=== PATIENT | female | born 1990 | race Caucasian/White ===

== ENCOUNTER 2023-01-17 11:30 | Outpatient (CLI) | payer MEDICAID ==
[2023-01-18 09:06] LABS: BILIRUBIN,URINE NEGATIVE (NEGATIVE); GLUCOSE, URINE (UA) NEGATIVE (NEGATIVE); KETONES,URINE (UA) NEGATIVE (NEGATIVE); LEUKOCYTE ESTERASE, URINE SMALL (NEGATIVE); NITRITE,URINE NEGATIVE (NEGATIVE); OCCULT BLOOD,URINE TRACE-INTA (NEGATIVE); PROTEIN,URINE NEGATIVE (NEGATIVE); UROBILINOGEN,URINE 1 (NORMAL) E.U./dL (NORMAL)
[2023-01-18 09:13] LABS: CLARITY,URINE CLOUDY (CLEAR)
[2023-01-18 09:20] LABS: AMORPHOUS SEDIMENT,UR Moderate /LPF; BACTERIA,URINE Few /HPF (None Seen); RBC,URINE None Seen /HPF (0-5); SQUAMOUS EPITHELIAL CELL,UR FEW Squamous (<= Few); WBC,URINE 0-3 /HPF (0-5)
[2023-01-18 09:21] LABS: CRYSTALS,URINE 3-5 Calcium Oxalate /LPF
== END 2023-01-17 11:31 | disposition home or self-care (01) ==
LOC: LAB.WC 11:30
PROVIDERS: ATTEND Nurse Practitioner
DX: Z34.90 Encounter for supervision of normal pregnancy, unspecified, unspecified trimester (principal)
CPT/HCPCS: 81001; 87077; 87086

== ENCOUNTER 2023-01-28 08:00 | Outpatient (CLI) | payer MEDICAID ==
[2023-01-28 20:20] LABS: CHLAMYDIA TRACHOMATIS DNA NEGATIVE (NEGATIVE); NEISSERIA GONORRHOEAE DNA NEGATIVE (NEGATIVE); TRICHOMONAS VAGINALIS DNA NEGATIVE (NEGATIVE)
== END 2023-01-28 23:59 | disposition home or self-care (01) ==
LOC: LAB.WC 08:00
PROVIDERS: ATTEND Obstetrics & Gynecology
DX: Z34.90 Encounter for supervision of normal pregnancy, unspecified, unspecified trimester (principal)
CPT/HCPCS: 87491; 87591; 87661

== ENCOUNTER 2023-02-18 13:32 | Outpatient (CLI) | payer MEDICAID ==
[2023-02-18 18:02] LABS: BASOPHILS % (AUTO) 0.3 %; EOSINOPHILS # (AUTO) 0.1 10^3/uL (0.0-0.7); EOSINOPHILS % (AUTO) 0.6 %; HCT - HEMATOCRIT 32.2 % (37.0-47.0); HGB - HEMOGLOBIN 10.9 g/dL (12.0-16.0); LYMPHOCYTES # (AUTO) 2.2 10^3/uL (1.5-3.5); LYMPHOCYTES % (AUTO) 18.4 %; MEAN CORPUSCULAR HEMOGLOBIN 29.9 pg (27.0-31.0); MEAN CORPUSCULAR HGB CONC 33.9 g/dL (32.0-36.0); MEAN CORPUSCULAR VOLUME 88.5 fL (81.0-99.0); MEAN PLATELET VOLUME 9.7 fL (7.9-10.8); MONOCYTES # (AUTO) 1.1 10^3/uL (0.0-1.0); MONOCYTES % (AUTO) 9.2 %; NEUTROPHILS # (AUTO) 8.4 10^3/uL (1.5-6.6); NEUTROPHILS % (AUTO) 70.9 %; PLT - PLATELET COUNT 283 10^3/uL (130-450); RED BLOOD COUNT 3.64 10^6/uL (4.20-5.40); RED CELL DISTRIBUTION WIDTH 12.8 % (12.0-15.0); WHITE BLOOD COUNT 11.8 x10^3/uL (4.8-10.8)
[2023-02-19 05:12] LABS: HBsAG SCREEN Negative (Negative); HCV AB Non Reactive (Non Reactive); HIV SCREEN 4TH GENERATION Non Reactive (Non Reactive)
[2023-02-19 08:10] LABS: RPR Non Reactive (Non Reactive)
[2023-02-19 09:09] LABS: VARICELLA-ZOSTER AB IGG 628 index (Immune >165)
[2023-02-20 20:07] LABS: AFP MOM 1.01 (.); AFP VALUE 39.2 ng/mL (.); GEST. AGE ON COLLECTION DATE 15.7 weeks (.); GESTAT. AGE METHOD EDD (.); INSULIN DEP DIABETES No (.); MATERNAL AGE AT EDD 31.7 yr (.); MULTIPLE GESTATION No (.); OPEN SPINA BIFIDA RISK 1 IN 10000 (.); RACE Caucasian (.); RESULTS Report (.); TEST RESULTS *Screen Negative* (.); WEIGHT 116 lbs (.)
== END 2023-02-18 13:33 | disposition home or self-care (01) ==
LOC: LAB.N 13:32
PROVIDERS: ATTEND Obstetrics & Gynecology
DX: O09.811 Supervision of pregnancy resulting from assisted reproductive technology, first trimester (principal)
CPT/HCPCS: 36415; 82105; 85025; 86592; 86762; 86787; 86803; 86850; 86900; 86901; 87340; 87389

== ENCOUNTER 2023-03-21 08:42 | Outpatient (CLI) | payer MEDICAID ==
--- NOTE | 2023-03-21 13:26 | Ultrasound Report ---
PROCEDURE: OB Anatomy Scan INDICATIONS: SUPERVISION OF OUTSIDE/PRIOR DATING DATA: Last menstrual period (LMP): 11/02/2022. In vitro fertilization transfer First dating scan (date and location): 03/21/2023. Estimated date of delivery (JANES) from first dating scan: 08/07/2023. TECHNIQUE: Real-time scanning was performed of the fetus, with image documentation and biometric measurements. Endovaginal scanning: Not performed. COMPARISON: None. FINDINGS: General: A single living intrauterine gestation is present. Presentation: Vertex Placenta: Placental position is anterior fundal, without previa. Amniotic fluid index: 13.1 cm, within normal limits for gestational age. Largest vertical pocket me asured 3.8 cm. heart rate: 150 beats per minute. Maternal cervical canal: 4.8 cm long; normal length is 2.5 cm or more. biometrics: Biparietal diameter: 4.5 cm, 19 weeks and 6 days (38th percentile) Head circumference: 16.9 cm, 19 weeks and 4 days (19th percentile) Abdominal circumference: 14.6 cm, 19 weeks and 6 days (36th percentile) Femur length: 3.2 cm, 20 weeks and 1 day (43rd percentile) Estimated gestational age from initial scan: 20 weeks and 1 day Composite gestational age from present scan: 19 weeks and 5 days Estimated weight and percentile: 325 g which correlates with the 36.5 percentile Measurement variability in biometric dating: +/- 10 days from 12-20 weeks gestation, +/- 2 weeks from 20-30 weeks gestation, +/- 3 weeks at 30 weeks gestation or later. Anatomic survey: Neuro: Ventricles are normal at less than 10 mm. Cisterna magna is normal at 3-11 mm. Cerebellum i s normal in size and morphology. Nuchal skin fold: Normal at less than 6 mm between 14 and 20 weeks gestational age. Face: Nose and lips are normal. facial profile was not visualized. Spine: No evidence for spina bifida. Heart: 4-chambered heart is present, with normal ventricular outflow tracts. Diaphragm: Diaphragm is intact. Stomach: Left-sided stomach is present. Kidneys: No hydronephrosis. Normal is less than 5 mm in 2nd trimester, less than 7 mm in 3rd trimester. Cord: 3 vessel cord has orthotopic insertion. Bladder: Normal in size. Extremities: All 4 extremities are visualized. IMPRESSION: Single living intrauterine gestation with estimated sonographic gestational age of approximately 19 w eeks and 5 days. Expected interval growth has occurred. Estimated weight of approximately 325 g which correlates with the 36.5 percentile. The facial profile is not well visualized. Remainder of the imaged anatomy structures dariel ear within normal limits. Follow-up recommended. Reviewed by: Rell Poole MD on 03/21/2023 1:24 PM PST Approved by: Rell Poole MD on 03/21/2023 1:24 PM PST Station ID: [id number]
== END 2023-03-21 08:43 | disposition home or self-care (01) ==
LOC: DI 08:42
PROVIDERS: ATTEND Obstetrics & Gynecology
DX: O09.812 Supervision of pregnancy resulting from assisted reproductive technology, second trimester (principal); Z3A.19 19 weeks gestation of pregnancy

== ENCOUNTER 2023-04-01 14:51 | Outpatient (CLI) | payer MEDICAID ==
--- NOTE | 2023-04-01 15:51 | Ultrasound Report ---
PROCEDURE: OB Follow up INDICATIONS: SUPERVISION OF OUTSIDE/PRIOR DATING DATA: First dating scan (date and location): 03/21/2023. Estimated date of delivery (JANES) from first dating scan: 08/07/2023. The below data below was generated using the ultrasound JANES of 08/07/2023 TECHNIQUE: Real-time scanning was performed of the fetus, with image documentation and biometric measurements. Endovaginal scanning: Not performed. COMPARISON: Ultrasound 03/21/2023 FINDINGS: General: A single living intrauterine gestation is present. Presentation: Vertex Placenta: Placental position is anterior, without previa. Amniotic fluid index: 18 cm, within normal limits for gestational age. heart rate: 153 beats per minute. Maternal cervical canal: 4.4 cm long; normal length is 2.5 cm or more. Estimated gestational age from initial scan: 21 weeks, 5 days Other: Facial profile is within normal limits. Bilateral renal pelviectasis measuring 6 mm. IMPRESSION: 1.Single image and patency consistent with 21 weeks and 5 days. 2.Facial profile is within normal limits. 3.Bilateral renal pelviectasis measuring 6 mm. Recommend short-term follow-up ultrasound. Reviewed by: Celestine Matias MD on 04/01/2023 3:50 PM PST Approved by: Celestine Matias MD on 04/01/2023 3:50 PM PST Station ID: [id number]
== END 2023-04-01 14:52 | disposition home or self-care (01) ==
LOC: DI 14:51
PROVIDERS: ATTEND Obstetrics & Gynecology
DX: O09.812 Supervision of pregnancy resulting from assisted reproductive technology, second trimester (principal); Z3A.21 21 weeks gestation of pregnancy

== ENCOUNTER 2023-05-13 10:59 | Outpatient (CLI) | payer MEDICAID ==
[2023-05-13 17:41] LABS: HCT - HEMATOCRIT 35.3 % (37.0-47.0); HGB - HEMOGLOBIN 11.5 g/dL (12.0-16.0); MEAN CORPUSCULAR HEMOGLOBIN 29.8 pg (27.0-31.0); MEAN CORPUSCULAR HGB CONC 32.6 g/dL (32.0-36.0); MEAN CORPUSCULAR VOLUME 91.5 fL (81.0-99.0); MEAN PLATELET VOLUME 9.5 fL (7.9-10.8); RED BLOOD COUNT 3.86 10^6/uL (4.20-5.40); RED CELL DISTRIBUTION WIDTH 12.7 % (12.0-15.0); WHITE BLOOD COUNT 11.5 x10^3/uL (4.8-10.8)
== END 2023-05-13 11:00 | disposition home or self-care (01) ==
LOC: LAB.N 10:59
PROVIDERS: ATTEND Obstetrics & Gynecology
DX: O09.812 Supervision of pregnancy resulting from assisted reproductive technology, second trimester (principal); Z36.89 Encounter for other specified antenatal screening
CPT/HCPCS: 36415; 82950; 85027

== ENCOUNTER 2023-06-27 11:34 | Outpatient (CLI) | payer MEDICAID ==
--- NOTE | 2023-06-27 19:50 | Ultrasound Report ---
PROCEDURE: OB Follow up INDICATIONS: UTERINE SIZE DATE DISCREPENCY OUTSIDE/PRIOR DATING DATA: IVF transfer: 11/02/2022 IVF-based estimated date of delivery (JANES): 08/07/2023. First dating scan (date and location): 03/21/2023. Estimated date of delivery (JANES) from first dating scan: 08/07/2023. The below data below was generated using the clinical JANES of 08/07/2023 TECHNIQUE: Real-time scanning was performed of the fetus, with image documentation and biometric measurements. Endovaginal scanning: Not performed. COMPARISON: 04/01/2023 FINDINGS: General: A single living intrauterine gestation is present. Presentation: Vertex Placenta: Placental position is anterior, without previa. Amniotic fluid index: 11.5 cm, 24 percentile for gestational age. heart rate: 147 beats per minute. Maternal cervical canal: 4.4 cm long; normal length is 2.5 cm or more. biometrics: Biparietal diameter: 8.1 cm, 32 weeks 4 days, 10 percentile Head circumference: 30 cm, 33 weeks 2 days, 5 percentile Abdominal circumference: 30.5 cm, 34 weeks 3 days, 64 percentile Femur length: 6.6 cm, 33 weeks 6 days, 34 percentile Estimated gestational age from initial scan: 34 weeks 1 day Composite gestational age from present scan: 33 weeks 4 days Estimated weight and percentile: 2324 g, 39 percentile Measurement variability in biometric dating: +/- 10 days from 12-20 weeks gestation, +/- 2 weeks from 20-30 weeks gestation, +/- 3 weeks at 30 weeks gestation or more. Other: Bilateral pelvocaliectasis, measuring 0.5 cm on the right and 0.6 cm on the left. This was pre viously 0.5 cm on the right and left. IMPRESSION: Single living intrauterine at 34 weeks 1 day, JANES of 08/07/2023. Estimated weight of 2324 g, 39th percentile. Bilateral pelvocaliectasis, measuring 0.5 cm on the right and 0.6 cm on the left. This was previously 0.5 cm on the right and left. Reviewed by: Manuel Lyons MD on 06/27/2023 7:48 PM PDT Approved by: Manuel Lyons MD on 06/27/2023 7:48 PM PDT Station ID: [id number]
== END 2023-06-27 11:35 | disposition home or self-care (01) ==
LOC: DI 11:34
PROVIDERS: ATTEND Nurse Practitioner
DX: O26.843 Uterine size-date discrepancy, third trimester (principal); O35.EXX0 Maternal care for other (suspected) fetal abnormality and damage, fetal genitourinary anomalies, not applicable or unspecified; Z3A.34 34 weeks gestation of pregnancy

== ENCOUNTER 2023-07-11 13:34 | Outpatient (CLI) | payer MEDICAID ==
[2023-07-11 14:00] VITALS: BP 109/58
--- NOTE | 2023-07-11 17:12 | PROCEDURE REPORT ---
- HPI Diagnosis/Indication for NST: Other (ivf ) Current EDU 08/07/23 Gestation 36 Weeks and 1 Days 1 Para 0 Vital Signs Temperature 98.4 F 07/11/23 13:48 Heart Rate 117 H 07/11/23 13:48 Respiratory Rate 20 07/11/23 13:48 Blood Pressure 109/58 L 07/11/23 13:48 Temperature 98.4 F 07/11/23 13:48 Heart Rate 95 07/11/23 14:24 Respiratory Rate 20 07/11/23 13:48 Blood Pressure 109/58 L 07/11/23 13:48 O2 Saturation If not protocol: Oxygen Flow, liters/minute - NST Procedure NST Procedure Start Date 07/11/23 Start Time 13:42 Stop Time 14:07 Vibroacoustic Stimulation Used No Patient States Movement Yes - Results and Plan Findings/Impression: Reactive for of 32 weeks gestation or more. NST tracing contains at least two heart rate accelerations that are at least 15 beats per minute above the baseline rate and lasting at least 15 seconds from onset to return to baseline within a twenty minute period. Plan: as scheduled
== END 2023-07-11 14:09 | disposition home or self-care (01) ==
LOC: WFO 13:34 → FBP 13:38 → WFO 14:09
PROVIDERS: ATTEND Obstetrics & Gynecology
DX: O09.813 Supervision of pregnancy resulting from assisted reproductive technology, third trimester (principal); Z3A.36 36 weeks gestation of pregnancy
CPT/HCPCS: 59025

== ENCOUNTER 2023-07-15 08:00 | Outpatient (CLI) | payer MEDICAID | END 2023-07-15 23:59 | disposition home or self-care (01) | LOC: LAB.WC 08:00 | PROVIDERS: ATTEND Obstetrics & Gynecology | DX: Z36.85 Encounter for antenatal screening for Streptococcus B (principal) | CPT/HCPCS: 87797 ==

== ENCOUNTER 2023-07-18 13:37 | Outpatient (CLI) | payer MEDICAID ==
[2023-07-18 13:56] VITALS: BP 98/58
--- NOTE | 2023-07-19 08:49 | PROCEDURE REPORT ---
- HPI Diagnosis/Indication for NST: Other (ivf ) Current EDU 08/07/23 Gestation 37 Weeks and 1 Days 1 Para 0 Vital Signs Temperature 97.7 F 07/18/23 13:50 Heart Rate 105 H 07/18/23 13:50 Respiratory Rate 17 07/18/23 13:50 Blood Pressure 98/58 L 07/18/23 13:50 Temperature 97.7 F 07/18/23 13:50 Heart Rate 105 H 07/18/23 13:50 Respiratory Rate 17 07/18/23 13:50 Blood Pressure 98/58 L 07/18/23 13:50 O2 Saturation If not protocol: Oxygen Flow, liters/minute - NST Procedure NST Procedure Start Date 07/18/23 Start Time 13:46 Stop Time 14:10 Vibroacoustic Stimulation Used No Patient States Movement Yes - Results and Plan Findings/Impression: Reactive for of 32 weeks gestation or more. NST tracing contains at least two heart rate accelerations that are at least 15 beats per minute above the baseline rate and lasting at least 15 seconds from onset to return to baseline within a twenty minute period. Plan: care as scheduled. will refill pepcid as requested. done in [place]
== END 2023-07-18 14:20 | disposition home or self-care (01) ==
LOC: WFO 13:37 → FBP 13:41 → WFO 14:20
PROVIDERS: ATTEND Obstetrics & Gynecology
DX: O09.813 Supervision of pregnancy resulting from assisted reproductive technology, third trimester (principal); Z3A.37 37 weeks gestation of pregnancy
CPT/HCPCS: 59025

== ENCOUNTER 2023-07-25 10:38 | Outpatient (CLI) | payer MEDICAID ==
[2023-07-25 10:55] VITALS: BP 96/60
--- NOTE | 2023-07-25 12:27 | PROCEDURE REPORT ---
- HPI Diagnosis/Indication for NST: Other (IVF ) Current EDU 08/07/23 Gestation 38 Weeks and 1 Days 1 Para 0 Vital Signs Temperature 98.1 F 07/25/23 10:49 Heart Rate 97 07/25/23 10:49 Respiratory Rate 16 07/25/23 10:49 Blood Pressure 96/60 07/25/23 10:49 Temperature 98.1 F 07/25/23 10:49 Heart Rate 97 07/25/23 10:49 Respiratory Rate 16 07/25/23 10:49 Blood Pressure 96/60 07/25/23 10:49 O2 Saturation If not protocol: Oxygen Flow, liters/minute - NST Procedure NST Procedure Start Date 07/25/23 Start Time 10:45 Stop Time 11:23 Vibroacoustic Stimulation Used No - Results and Plan Plan: Patient is a 32-year-old G1, P0 at 38 weeks 1 day gestation here for NST. NST Performed 07/25/2023 NST Read 07/25/2023 FHT: 130 bpm baseline, moderate variability, accelerations present, no decelerations. Reactive NST Macy: Quiescent Diagnosis 38 weeks gestation IVF Continue with scheduled OB care
== END 2023-07-25 11:30 | disposition home or self-care (01) ==
LOC: WFO 10:38 → FBP 10:39 → WFO 11:30
PROVIDERS: ATTEND Obstetrics & Gynecology
DX: O09.813 Supervision of pregnancy resulting from assisted reproductive technology, third trimester (principal); Z3A.38 38 weeks gestation of pregnancy
CPT/HCPCS: 59025

== ENCOUNTER 2023-07-30 06:01 | Inpatient (IN) | payer MEDICAID ==
[2023-07-30 07:49] LABS: RUPTURE OF MEMBRANES PLUS POSITIVE (NEGATIVE)
--- NOTE | 2023-07-30 08:16 | HISTORY & PHYSICAL EXAMINATION ---
Admit History - Visit Reason Visit Reason: Membranes rupture - : 1 Parity: 0 Complications This : positive: Other (IVF ) Smoking Status: Never smoker - Mother's Labs Mother's Blood Type: positive: O Mother's RH: positive: Positive GBS: positive: Group B Step Negative Rubella Status: positive: Immune - Other Maternal History Other Maternal History: HPI: 32-year-old G1, P0 presented today with rupture of membranes she woke up this morning. She has some contractions that started yesterday. 25 minutes.. She has good movement. . No WIN/BV or RUQP. No vaginal bleeding. Denies nausea and vomiting. Denies urinary urgency or dysuria. All other symptoms reviewed and were negative except per HPI. Course LMP: 11/02/22 JANES by LMP: US:12/28/22 c/w dates Final JANES: 08/07/2023 - by IVF transfer FOB: Jono Cobb IVF . Male factor? Failed IUI twice then IVF. Normal gentic screening. Sex known. Start ASA 12 weeks. Encouraged to think about spacing and consider condoms as not an absolute cause of infertility. NST/BPP scheduled. GERD: Famotidine for prevention. Taking nightly currently. Pre- Weight:112.4 BMI: 19.98 Blood type: O+ Rh: positive Antibody:negative CBC: H/H 10.9/32.2 plt 283 RUB:Immune VZV:Immune HBsAg: Negative HepC: NR RPR/AB-EIA:NR HIV:NR PAP:10/30/2021 Normal per pt. Will get records. GC/CT: Negative HSV:denies self and partner Genetic testing: normal Covid:declines Flu:declines FAS: WNL Placenta:anterior w/o previa Cord: 3VC KETAN:13.1, normal EFW: 325gl 36.5%ile 50gm OGCT: 120 3HR GTT: n/a TDAP: 06/02 Breast Pump: 05/19 3rd trimester H/H-35.3/11.5 PLT-254 GBS: Negative Delivery plan: No epidural, Encouraged to discuss 39 to 40-week induction. Contraception: IVF , Consider condoms as he does have mobile sperm and she has no reason for infertility. PMH Anxiety PSH Egg retrieval OB History G1, P0 SH Denies tobacco, alcohol, drugs Family History Mother: DVT, migraines Father: High cholesterol, lung cancer Maternal grandmother: Diabetes Allergies Latex Medications Aspirin 81 mg daily Famotidine 20 mg twice daily as needed vitamins daily Physical exam: General: Alert, oriented, no acute distress Head: Normal cephalic atraumatic Eyes: PERRLA, extraocular motions intact. Respiratory: Normal rate of respiration. No accessory muscle use, normal respiratory effort. Cardiovascular: Regular rate and rhythm Abdomen: Gravid, nontender, nondistended Extremities: Normal range of motion Neuro: Oriented x3. Normal movements Psych: Appropriate mood and affect. Normal judgment and insight SVE: 0/0/-3 FHT: 145 beats minute baseline, moderate variability, accelerations present, no decelerations. [place]: 2 to 5 minutes Labs: ROM plus positive Plan 1. Term labor/SROM Admit to L&D, active labs, epidural at patient's request. 2. 38 weeks gestation 3. IVF 4. GERD: -Continue famotidine as needed - HPI Vital Signs Temperature 97.8 F 07/30/23 06:11 Heart Rate 109 H 07/30/23 06:11 Respiratory Rate 16 07/30/23 06:11 Blood Pressure 100/58 L 07/30/23 06:11 Temperature 97.8 F 07/30/23 06:11 Heart Rate 109 H 07/30/23 06:11 Respiratory Rate 16 07/30/23 06:11 Blood Pressure 100/58 L 07/30/23 06:11 O2 Saturation If not protocol: Oxygen Flow, liters/minute - NST Procedure NST Procedure Start Time 10:45 Stop Time 11:23 Meds/Allgy - Home Medications Home Medications: Ambulatory Orders Medication Instructions Recorded Confirmed Aspirin [Vazalore] 81 mg PO DAILY 07/18/23 07/18/23 Famotidine [Acid Furnace Keeper] 20 mg PO DAILY 07/18/23 07/18/23 Famotidine [Pepcid] 20 mg PO BID PRN #90 tablet 07/18/23 Pnv No.95/Ferrous Fum/Folic AC 1 tab PO DAILY 07/18/23 07/18/23 [ Caplet] Physical - Abdominal Exam Vital Signs: Temp Pulse Resp BP Pulse Ox O2 Flow Rate 97.8 F 109 H 16 100/58 L 07/30/23 06:11 07/30/23 06:11 07/30/23 06:11 07/30/23 06:11 Plan for Labor - Plan For Labor I expect patient to be DC'd or transferred within 96 hours.: Yes
[2023-07-30] MEDS ORDERED: FAMOTIDINE 20 MG TABLET PO PRN (08:31)
[2023-07-30] MEDS ORDERED: METHYLERGONOVINE 0.2 MG/ML VIAL IM PRN (08:34)
[2023-07-30] MEDS ORDERED: ONDANSETRON ODT 4 MG TABLET TL PRN (08:34)
[2023-07-30] MEDS ORDERED: miSOPROStoL 200 MCG TABLET PR PRN (08:34)
[2023-07-30] MEDS ORDERED: NIFEdipine 10 MG CAPSULE PO PRN (08:34)
[2023-07-30] MEDS ORDERED: miSOPROStoL 200 MCG TABLET BC PRN (08:34)
[2023-07-30] MEDS ORDERED: SODIUM CHLORIDE FLUSH 0.9% 10 ML SYRINGE IVP PRN (08:34)
[2023-07-30] MEDS ORDERED: TRANEXAMIC ACID IN NACL 1,000 MG/100 ML BAG IV PRN (08:34)
[2023-07-30] MEDS ORDERED: hydrALAZINE INJ 20 MG/ML VIAL IVP PRN ×2 (08:34)
[2023-07-30] MEDS ORDERED: OXYTOCIN 10 UNIT/ML VIAL IM PRN (08:34)
[2023-07-30] MEDS ORDERED: LABETALOL 20 MG/4 ML SYRINGE IVP PRN ×3 (08:34)
[2023-07-30] MEDS ORDERED: TERBUTALINE 1 MG/ML VIAL SUBQ PRN (08:34)
[2023-07-30] MEDS ORDERED: ACETAMINOPHEN 500 MG TABLET PO PRN (08:34)
[2023-07-30] MEDS ORDERED: fentaNYL 100 MCG/2 ML VIAL IVP PRN (08:34)
[2023-07-30] MEDS ORDERED: OXYTOCIN/SODIUM CHLORIDE 500 ML IV SCH (09:00)
[2023-07-30] MEDS ORDERED: LACTATED RINGERS 1,000 ML IV SCH (09:00)
[2023-07-30] MEDS ORDERED: SODIUM CHLORIDE FLUSH 0.9% 10 ML SYRINGE IVP SCH (09:00)
[2023-07-30] MEDS: miSOPROStoL 100 MCG TABLET BC SCH (09:37)
[2023-07-30 10:30] LABS: BASOPHILS # (AUTO) 0.1 10^3/uL (0.0-0.1); BASOPHILS % (AUTO) 0.4 %; EOSINOPHILS # (AUTO) 0.1 10^3/uL (0.0-0.7); EOSINOPHILS % (AUTO) 0.4 %; HCT - HEMATOCRIT 41.9 % (37.0-47.0); HGB - HEMOGLOBIN 13.7 g/dL (12.0-16.0); LYMPHOCYTES # (AUTO) 2.2 10^3/uL (1.5-3.5); LYMPHOCYTES % (AUTO) 13.1 %; MEAN CORPUSCULAR HEMOGLOBIN 29.1 pg (27.0-31.0); MEAN CORPUSCULAR HGB CONC 32.7 g/dL (32.0-36.0); MEAN PLATELET VOLUME 10.3 fL (7.9-10.8); MONOCYTES # (AUTO) 1.2 10^3/uL (0.0-1.0); MONOCYTES % (AUTO) 7.3 %; NEUTROPHILS # (AUTO) 13.1 10^3/uL (1.5-6.6); NEUTROPHILS % (AUTO) 76.9 %; PLT - PLATELET COUNT 264 10^3/uL (130-450); RED BLOOD COUNT 4.71 10^6/uL (4.20-5.40); RED CELL DISTRIBUTION WIDTH 13.1 % (12.0-15.0)
--- NOTE | 2023-07-30 12:01 | PHARMACY PROGRESS NOTE ---
- Best Possible Medication History Admit Date and Time: 07/30/23 0834 Processed by: Pharmacy Medications reviewed in ED?: No Medication History completed: No Patient Interview: Pt unable to participate Secondary Source(s): Physician records, Insurance records As the person ultimately responsible for medication therapy, providers are able to order a medication from an existing home medication list in [facility] via the "Reconcile Routine" prior to Confirmation of that medication by retail support specialist. Such practice is discouraged except when the physician, in their clinical judgment, deems that a medical need exists for a medication without regard to previous use.
--- NOTE | 2023-07-30 21:02 | ANESTHESIA ---
Pre-Anesthesia VS, & Labs - Diagnosis Induction of labor - Procedure vaginal delivery Vital Signs: Temp Pulse Resp BP Pulse Ox O2 Flow Rate 37.0 C 109 H 16 100/58 L 07/30/23 08:15 07/30/23 06:11 07/30/23 06:11 07/30/23 06:11 Height: 5 ft 3 in Weight (kg): 69.4 kg Body Mass Index: 27.1 BMI Classification: Overweight - NPO Other (clear liquids during labor) - Is Patient ?: Yes - Lab Results Current Lab Results: Laboratory Tests 07/30/23 08:45: WBC 17.0 H, RBC 4.71, Hgb 13.7, Hct 41.9, MCV 89.0, MCH 29.1, MCHC 32.7, RDW 13.1, Plt Count 264, MPV 10.3, Neut # (Auto) 13.1 H, Lymph # (Auto) 2.2, Peach # (Auto) 1.2 H, Eos # (Auto) 0.1, Baso # (Auto) 0.1, Absolute Nucleated RBC 0.00, Nucleated RBC % 0.0 07/30/23 08:45: Blood Type O POSITIVE, Antibody Screen NEGATIVE Lab results reviewed: Yes Fish Bones: 07/30/23 08:45 Home Medications and Allergies Active Medications Acetaminophen (Acetaminophen 500 Mg Tablet) 1,000 mg PO Q6HR PRN PRN Reason: Pain or Fever > 38C (100.4F) Famotidine (Famotidine 20 Mg Tablet) 20 mg PO BID PRN PRN Reason: Heartburn Fentanyl (Fentanyl 100 Mcg/2 Ml Vial) 50 mcg IVP Q1H PRN PRN Reason: Severe Pain (score 7-10) Hydralazine HCl (Hydralazine Inj 20 Mg/Ml Vial) 10 mg IVP .ONCE PRN; Protocol PRN Reason: SBP> or= 160 OR DBP> or= 110 Hydralazine HCl (Hydralazine Inj 20 Mg/Ml Vial) 5 - 10 mg IVP Q20M PRN; Protocol PRN Reason: SBP> or= 160 OR DBP> or= 110 Oxytocin/Sodium Chloride (Pitocin/Sodium Chloride) 500 mls @ 999 mls/hr IV PRN PRN; Protocol PRN Reason: POST- HEMORR PREVENTION Tranexamic Acid (Tranexamic 1,000 Mg/100ml-Nacl) 1,000 mg in 100 mls @ 600 mls/hr IV Q30M PRN PRN Reason: EBL >1200mL and within 3hr Lactated Ringer's (Lr) 1,000 mls @ 125 mls/hr IV .Q8H TARUN Lactated Ringer's (Lr) 1,000 mls @ 999 mls/hr IV PRN PRN PRN Reason: PER PHYSICIAN ORDER Oxytocin/Sodium Chloride (Pitocin/Sodium Chloride) 500 mls @ 2 mls/hr IV TITR TARUN; Protocol Labetalol HCl (Labetalol 20 Mg/4 Ml Syringe) 20 mg IVP .ONCE PRN; Protocol PRN Reason: SBP> or= 160 OR DBP> or= 110 Labetalol HCl (Labetalol 20 Mg/4 Ml Syringe) 20 - 80 mg IVP Q10M PRN; Protocol PRN Reason: SBP> or= 160 OR DBP> or= 110 Labetalol HCl (Labetalol 20 Mg/4 Ml Syringe) 20 - 40 mg IVP Q10M PRN; Protocol PRN Reason: SBP> or= 160 OR DBP> or= 110 Lidocaine HCl (Lidocaine 1% 20 Ml Mdv) 20 ml ID .ONCE PRN PRN Reason: PERINEAL REPAIR Stop: 08/02/23 08:34 Methylergonovine Maleate (Methylergonovine 0.2 Mg/Ml Vial) 0.2 mg IM .ONCE PRN PRN Reason: Hemorrhage Misoprostol (Misoprostol 200 Mcg Tablet) 600 mcg BC .ONCE PRN PRN Reason: Hemorrhage Misoprostol (Misoprostol 200 Mcg Tablet) [address] .ONCE PRN PRN Reason: Hemorrhage Misoprostol (Misoprostol 100 Mcg Tablet) 25 mcg BC Q4H [facility] Last Admin: 07/30/23 13:45 Dose: 25 mcg Nifedipine (Nifedipine 10 Mg Capsule) 10 - 20 mg PO Q20M PRN; Protocol PRN Reason: SBP> or= 160 OR DBP> or= 110 Ondansetron HCl (Ondansetron Odt 4 Mg Tablet) 4 mg TL Q6HR PRN PRN Reason: Nausea / Vomiting Oxytocin (Oxytocin 10 Unit/Ml Vial) 10 unit IM .ONCE PRN PRN Reason: Step One if no IV access. Sodium Chloride (Sodium Chloride Flush 0.9% 10 Ml Syringe) 10 ml IVP Q8H TARUN Sodium Chloride (Sodium Chloride Flush 0.9% 10 Ml Syringe) 10 ml IVP PRN PRN PRN Reason: NEEDED PER PROVIDER ORDERS Terbutaline Sulfate (Terbutaline 1 Mg/Ml Vial) 0.25 mg SUBQ .ONCE PRN PRN Reason: Tachystole Aspirin [Vazalore] 81 mg PO DAILY 07/18/23 Famotidine [Acid Housing Case Manager] 20 mg PO HS 07/18/23 Pnv No.95/Ferrous Fum/Folic AC [ Caplet] 1 tab PO DAILY 07/18/23 Allergies/Adverse Reactions: Allergies Allergy/AdvReac Type Severity Reaction Status Date / Time latex Allergy Unknown Verified 07/30/23 21:01 Anes History & Medical History - Anesthetic History Anesthesia Complications: reports: No previous complications Family history of Anesthesia Complications: Denies Family history of Malignant Hyperthermia: Denies - Medical History Cardiovascular: reports: None Pulmonary: reports: None Gastrointestinal: reports: None Urinary: reports: None Neuro: reports: None Musculoskeletal: reports: Scoliosis (mild) Endocrine/Autoimmune: reports: None Blood Disorders: reports: None Skin: reports: None Smoking Status: Never smoker Psychosocial: reports: No issues indicated History of Cancer?: No - Surgical History Other Past Surgical History: Egg retrieval - Obstetrical History : 1 Parity: 0 Events: reports: None Complications: reports: Other (IVF ) Exam General: Alert, Oriented x3, Cooperative, No acute distress Dental: WNL Mouth Openin Fingerbreadth Neck Mobility: Normal Mallampati classification: II Thyromental Distance: 4-6 cm Mental/Cognitive Status: Alert/Oriented X3, Normal for patient Plan Anesthesia Type: Epidural (if requested) Consent for Procedure(s) Verified and Reviewed: Yes Code Status: Attempt Resuscitation ASA classification: 2-Mild systemic disease Is this case an emergency?: No
[2023-07-31] MEDS: LACTATED RINGERS 1,000 ML IV PRN (05:53)
[2023-07-31] MEDS: OXYTOCIN/SODIUM CHLORIDE 500 ML IV PRN (05:53)
[2023-07-31] MEDS: lidocaine 1% 20 ML MDV ID PRN (05:58)
[2023-07-31] MEDS ORDERED: SIMETHICONE CHEW 80 MG TABLET PO PRN (06:28)
[2023-07-31] MEDS ORDERED: CALCIUM CARBONATE CHEW 500 MG TABLET PO PRN (06:28)
[2023-07-31] MEDS ORDERED: ONDANSETRON 4 MG/2 ML VIAL IVP PRN (06:28)
--- NOTE | 2023-07-31 06:41 | DELIVERY NOTE ---
<Bernabe Strong - Last Filed: 07/31/23 07:00> Delivery Note - Delivery Comments (Free Text/Narrative) Delivery Comments (Free Text/Narrative): As above. I was present and participated in the delivery of a vigorous liveborn without significant complications for the training of student commercial loan closer, Teagan Willoughby. <Teagan Willoughby - Last Filed: 07/31/23 16:22> Delivery Note - Labor Labor: positive: Spontaneous - Infant Delivery Method Delivery Method: positive: Spontaneous vaginal delivery - Presentation Presentation: positive: JANE - left occiput anterior - Nuchal Cord Nuchal Cord: positive: None - Anesthetic Anesthetic: positive: Lidocaine - 1% plain - Amniotic Fluid Description Amniotic Fluid Description: positive: Clear - Laceration Laceration: positive: 2nd degree - Suture Suture Size: positive: 3-0 - Delivery Outcome Delivery Outcome: positive: Livebirth - [place] : positive: Placed in direct skin contact with mother, [place] used, [place] used [place] sex: positive: Male - Cord Cord: positive: 3 vessels - Placenta Placenta: positive: Intact - Estimated Blood Loss Estimated Blood Loss (in cc): 200 - Post Delivery Events Post Delivery Events: positive: No post delivery events - Delivery Comments (Free Text/Narrative) Delivery Comments (Free Text/Narrative): This-32 year-old, G 1 P 0 . @ 38+6 gestation on 0500 on 07/30/2023 with rupture of membranes. She presented to L&D with a Cervix was 0/50/-2 and Vertex. GBS negative. FHR pattern demonstrated 140s baseline in a category I. 2 doses of misoprostol given for cervical softening, Unmedicated normal labor progression followed. Complete/+1 @ 0504. : Normal spontaneous vaginal delivery of a viable male on 07/31/23 @ 0537. The was placed on maternal abdomen, stimulated, dried and placed skin to skin. Apgars 9 @1 min, and @5 minutes. Pitocin administered via IV for hemostasis. The umbilical cord was allowed to stop pulsating at which time it was doubly clamped by delivering provider and cut by FOB. 3VC. Cord blood was obtained. Fundal massage and gently cord traction applied for active management of the third stage, placenta delivered spontaneously and intact with placenta delivery intact at 0553. EBL 200. Fourth stage: Uterine fundus firm and there is no excessive bleeding. The perineum, vagina and cervix were inspected. 2nd degree perineal laceration with extension to right labial side wall. Lacerations were repaired under local anesthesia 1% lidocaine 20cc -0 vicryl rapide, repaired in standards fashion under sterile conditions). Vaginal and rectal examination following the repair was done. Tissues well approximated. Skin to skin initiated. Family bonding well. Both mother and baby are in stable condition.
[2023-07-31] MEDS ORDERED: LACTATED RINGERS 1,000 ML IV SCH (07:00)
[2023-07-31] MEDS: IBUPROFEN 600 MG TABLET PO SCH (08:00)
[2023-07-31] MEDS: ACETAMINOPHEN 500 MG TABLET PO SCH (08:00)
[2023-07-31 16:24] VITALS: O2SAT 96
[2023-07-31] MEDS: DOCUSATE SODIUM 100 MG CAPSULE PO PRN (21:08)
--- NOTE | 2023-08-01 09:31 | DISCHARGE SUMMARY ---
Discharge Summary - ALLERGIES Allergies/Adverse Reactions: Allergies Allergy/AdvReac Type Severity Reaction Status Date / Time latex Allergy Unknown Verified 07/30/23 21:01 - MEDICATIONS Home Medications: Ambulatory Orders Medication Instructions Recorded Confirmed Aspirin [Vazalore] 81 mg PO DAILY 07/18/23 07/30/23 Famotidine [Acid Pearl Glue Operator] 20 mg PO HS 07/18/23 07/30/23 Famotidine [Pepcid] 20 mg PO BID PRN #90 tablet 07/18/23 07/30/23 Pnv No.95/Ferrous Fum/Folic AC 1 tab PO DAILY 07/18/23 07/30/23 [ Caplet] - LABS Result Diagrams: 07/30/23 08:45
--- NOTE | 2023-08-01 09:35 | DISCHARGE SUMMARY ---
"Discharge Summary Admit Date: 07/30/23 Discharge Date: 08/01/23 Discharging Provider: Suzanne Quintana MD Code Status: Attempt Resuscitation Condition at Discharge: Good Discharge Disposition: 01 Home, Self Care - DIAGNOSES Admission Diagnoses: PROM IVF - CONSULTS | PROCEDURES Procedures: , repair of 2nd degree laceration - HOSPITAL COURSE Hospital Course: Annette is a 32 yo wh opresents with rupture of membranes. She received 2 doses of misoprostol. She had an uncomplicated , repair of 2nd degree vaginal laceration with an EBL of 200cc. course uncomplicated. - ALLERGIES Allergies/Adverse Reactions: Allergies Allergy/AdvReac Type Severity Reaction Status Date / Time latex Allergy Unknown Verified 07/30/23 21:01 - MEDICATIONS Home Medications: Ambulatory Orders Medication Instructions Recorded Confirmed Aspirin [Vazalore] 81 mg PO DAILY 07/18/23 07/30/23 Famotidine [Acid Traffic Expert] 20 mg PO HS 07/18/23 07/30/23 Famotidine [Pepcid] 20 mg PO BID PRN #90 tablet 07/18/23 07/30/23 Pnv No.95/Ferrous Fum/Folic AC 1 tab PO DAILY 07/18/23 07/30/23 [ Caplet] - PHYSICAL EXAM AT DISCHARGE General Appearance: positive: No acute distress Respiratory: positive: No respiratory distress Abdomen: positive: Non-tender, Other (Fundus firm. ) Extremities: positive: No pedal edema, Other (No evidence of DVT) - LABS Result Diagrams: 07/30/23 08:45 - FOLLOW UP Follow Up: 1 week"
[2023-08-01 10:32] VITALS: BP 97/57
--- NOTE | 2023-08-01 14:45 | Labor Flowsheet ---
Labor Flowsheet Datetime Report Generated by CPN: 08/01/2023 14:45 Datetime: 08/01/2023 06:39 VITAL SIGNS NBP Sys/Shannan/Mean (mmHg): 91 : 45 : 56 Pulse: 74 Datetime: 07/31/2023 07:31 Stage of : Datetime: 07/31/2023 07:30 Respirations: 18 Temperature (C): 36.5 Temperature Route: Oral Datetime: 07/31/2023 05:53 STAGE 2 Stage 2 Comments: placenta Datetime: 07/31/2023 05:05 Provider Notified (Name): Ate, Owen Communication Comments: REquest to come in Datetime: 07/31/2023 05:04 VAGINAL EXAM Dilatation (cm): 10.0 Station: 1 Exam by: K Pattie Datetime: 07/31/2023 05:00 COMMUNICATION Communication: Provider at Bedside Datetime: 07/31/2023 04:36 LaborFlag: Labor Datetime: 07/31/2023 04:27 Effacement (%): 80 Vaginal Bleeding: Normal Show Cervix, Position: Anterior Datetime: 07/31/2023 02:00 Category: Category I Datetime: 07/31/2023 01:27 Monitor Interventions for FHR: Ultrasound Adjusted Datetime: 07/31/2023 01:00 Monitor Interventions for UA: [place] Adjusted Datetime: 07/31/2023 00:49 Cervix, Consistency: Soft Datetime: 07/31/2023 00:48 Patient Position/Activity: Semi-Fowlers Patient Care Comments: PT back to bed. VE to follow Datetime: 07/30/2023 22:13 Comments: Pt still in tub Datetime: 07/30/2023 21:34 UTERINE ACTIVITY Monitor Mode: External Frequency (min): 2-4 Quality: Moderate Duration (sec): 50-80 Pattern: Normal: <= 5 Contractions in 10 Minutes Resting Tone (Palpate): Relaxed ASSESSMENT A Monitor Mode: External US FHR Baseline Rate : 135 Variability: Moderate 6-25 bpm Accelerations: 15X15 Decelerations: None Datetime: 07/30/2023 20:01 I/O Interventions: Up to BR Datetime: 07/30/2023 20:00 FHR Baseline Changes: No Baseline Change Datetime: 07/30/2023 18:31 Actions for Decelerations: IV Bolus PATIENT CARE IV/Blood Work: IV Started; IV Bolus Started; IV Bolus Given ml @ 300 Datetime: 07/30/2023 13:48 Vital Sign Comments: Pt bending arm and moving during BP reading PAIN Pain Scale: 2 Pain Presence: Intermittent Pain Type: Cramping Pain Location: Abdomen Pain Relief Measures: Comfort Measures Pain Coping: Talking Through Contractions Datetime: 07/30/2023 13:45 MEDICATIONS Cervical Ripening Agents: Cytotec @ Datetime: 07/25/2023 10:49 SpO2 (%): 98 Datetime: 07/18/2023 14:01 Membranes Ruptured Date/Time: 07/30/2023 05:00 Membranes Rupture Method: Spontaneous Amniotic Fluid Color: Clear Amniotic Fluid Amount: Moderate Amniotic Fluid Odor: Normal
== END 2023-08-01 13:20 | disposition home or self-care (01) | DRG 807 ==
LOC: FBP 06:01 → WFO 06:01 → FBP 08:34
PROVIDERS: ADMIT Obstetrics & Gynecology; ATTEND Obstetrics & Gynecology
PROC: 10E0XZZ Delivery of Products of Conception, External Approach (ICD-10-PCS; principal; 2023-07-31)
PROC: 0KQM0ZZ Repair Perineum Muscle, Open Approach (ICD-10-PCS; 2023-07-31)
DX: O70.1 Second degree perineal laceration during delivery (principal); Z37.0 Single live birth; O99.62 Diseases of the digestive system complicating childbirth; K21.9 Gastro-esophageal reflux disease without esophagitis; O99.344 Other mental disorders complicating childbirth; F41.9 Anxiety disorder, unspecified; Z3A.38 38 weeks gestation of pregnancy
CPT/HCPCS: 36415; 59409; 84112; 85025; 86850; 86900; 86901; 99213; A9270; J7120

== ENCOUNTER 2023-10-12 18:52 | Emergency (ER) | payer MEDICAID ==
--- NOTE | 2023-10-12 19:10 | ED Physician Documentation ---
History of Present Illness - Stated complaint Stated Complaint: LT ANKLE PX - Chief complaint Chief Complaint: Trauma Ext - History obtained from History obtained from: Patient - History of Present Illness Timing: Prior to arrival - Additonal information Additional information: Patient is a 32-year-old female presenting to the emergency department with left ankle pain she was riding a hover board and inverted her foot when stepping off rolling her ankle. Patient sustained pain to her left ankle no knee pain she did not hit her head or lose consciousness. Patient took Advil and ice for pain at home but had significant pain with ambulation on it. PD PAST MEDICAL HISTORY - Past Medical History Past Medical History: Yes Cardiovascular: None Respiratory: None Neuro: None Endocrine/Autoimmune: None GI: None : None Musculoskeletal: Scoliosis Derm: None - Past Surgical History Past Surgical History: Yes - Present Medications Home Medications: Ambulatory Orders Medication Instructions Recorded Confirmed Aspirin [[place]] 81 mg PO DAILY 07/18/23 07/30/23 Famotidine [Acid Blueprint Developer] 20 mg PO HS 07/18/23 07/30/23 Famotidine [Pepcid] 20 mg PO BID PRN #90 tablet 07/18/23 07/30/23 Pnv No.95/Ferrous Fum/Folic AC 1 tab PO DAILY 07/18/23 07/30/23 [ Caplet] - Allergies Allergies/Adverse Reactions: Allergies Allergy/AdvReac Type Severity Reaction Status Date / Time latex Allergy Unknown Verified 10/12/23 18:55 - Social History Does the pt smoke?: No Smoking Status: Never smoker Does the pt drink ETOH?: No Does the pt have substance abuse?: No - Immunizations Immunizations are current?: Yes - POLST Patient has POLST: No PD ED PE NORMAL - Vitals Vital signs reviewed: Yes - General General: Alert and oriented X 3 - HEENT HEENT: Atraumatic, PERRL, EOMI - Neck Neck: Supple, no meningeal sign - Cardiac Cardiac: RRR, No gallop, No rub - Respiratory Respiratory: No respiratory distress, Clear bilaterally - Abdomen Abdomen: Normal bowel sounds, Soft, Non tender, Non distended - Extremities Extremities: No deformity, Other (Reproducible lateral left ankle pain along the lateral malleolus no obvious deformity but mild swelling appreciated no obvious bruising or ecchymosis. Achilles tendon intact digits 1 through 5 full range of motion good capillary refill DP PT pulses 2+. No fibular head tenderness.) - Neuro Neuro: Alert and oriented X 3 Results - Vitals Vitals: Vital Signs - 24 hr 10/12/23 18:55 Temperature 36.8 C Heart Rate 78 Respiratory 16 Rate Blood Pressure 120/70 O2 Saturation 100 Oxygen O2 Source Room air - Rads (name of study) x-ray left ankle Relevant Findings:: EMP independent interpretation of test PD Medical Decision Making - ED course Complexity details: reviewed old records, reviewed results ED course: Patient is a 32-year-old female presents to the emergency department with left ankle pain after she rolled it when getting off a hover board she did not hit her head she did not lose consciousness sustained persistent pain to left lateral ankle. She notes some mild swelling to her lateral ankle took ibuprofen and used ice on it without relief. She notes significant pain with trying to ambulate on it. She denies any previous injuries to her left ankle. Physical exam shows some lateral swelling to lateral malleolus no obvious bruising or obvious deformity. No fibular head tenderness full range of motion of digits 1 through 5 good capillary refill DP PT pulses 2+. X-ray of left ankle shows Lateral mildly displaced fracture at syndesmosis level with mild widening at medial malleolar but no acute fracture. Given fracture to syndesmosis level will place in posterior and sugar-tong splint additionally will have patient elevated ice take Tylenol at home she also was offered crutches but declined as she has some at home patient instructed watch for any worsening pain numbness tingling worsening discoloration or any other new or worsening symptoms Departure - Departure Disposition: 01 Home, Self Care Clinical Impression: Lateral malleolar fracture, Ankle injury Condition: Good Instructions: ED Fx Ankle Lateral Malleolus Follow-Up: Delon Hill MD [Physician No Access] - Comments: You sustained a fracture to your left ankle your workup here showed no significant displacement I have placed you in a splint you should use crutches at home keep elevated ice will assess for discoloration or numbness or severe pain follow-up with orthopedics have given you referral here in the emergency department you can take Tylenol 1000 mg every 8 hours for your symptoms. Forms: PCP List
--- NOTE | 2023-10-12 19:37 | XRAY Report ---
PROCEDURE: Ankle 3+V LT INDICATIONS: left ankle swelling TECHNIQUE: 3 views of the ankle were acquired. COMPARISON: None. FINDINGS: Bones: Mildly displaced lateral malleolus fracture at the level of the syndesmosis. Medial mortise is at the upper limit of normal, 3 to 4 mm. Soft tissues: Soft tissue swelling is present. IMPRESSION: Mildly displaced lateral malleolus fracture at the level of the syndesmosis. Reviewed by: Olegario Muñoz MD on 10/12/2023 7:35 PM PDT Approved by: Olegario Muñoz MD on 10/12/2023 7:35 PM PDT Station ID: [id number]
[2023-10-12 21:24] VITALS: BP 115/59; O2SAT 98
== END 2023-10-12 21:05 | disposition home or self-care (01) ==
LOC: ED 18:52
DX: S82.62XA Displaced fracture of lateral malleolus of left fibula, initial encounter for closed fracture (principal); X50.1XXA Overexertion from prolonged static or awkward postures, initial encounter; Z79.82 Long term (current) use of aspirin
CPT/HCPCS: 29515; 99283

== ENCOUNTER 2023-10-24 09:38 | Outpatient (CLI) | payer MEDICAID ==
--- NOTE | 2023-10-24 11:45 | XRAY Report ---
PROCEDURE: Ankle 3+V LT INDICATIONS: NONDISPLACED FX OF LATERAL MALLEOLUS LEFT FIBULA TECHNIQUE: 3 views of the ankle were acquired. COMPARISON: 10/12/2023. FINDINGS: Bones: Similar appearance of mildly displaced distal fibular fracture.. Ankle mortise is normally a ligned. No suspicious bony lesions. Soft tissues: Small tibiotalar joint effusion. Achilles tendon appears normal. IMPRESSION: Similar appearance of mildly displaced distal fibular fracture. Reviewed by: Celestine Matias MD on 10/24/2023 11:43 AM PDT Approved by: Celestine Matias MD on 10/24/2023 11:43 AM PDT Station ID: [id number]
== END 2023-10-24 09:39 | disposition home or self-care (01) ==
LOC: DI 09:38
PROVIDERS: ATTEND Orthopaedic Surgery
DX: S82.65XD Nondisplaced fracture of lateral malleolus of left fibula, subsequent encounter for closed fracture with routine healing (principal)

== ENCOUNTER 2023-11-21 08:55 | Outpatient (CLI) | payer MEDICAID ==
--- NOTE | 2023-11-21 19:21 | XRAY Report ---
PROCEDURE: Ankle 3+V LT INDICATIONS: NONDISPLACED FX OF LATERAL MALLEOLUS L FIBULA TECHNIQUE: 3 views of the ankle were acquired. COMPARISON: Left ankle radiograph on October 24, 2023. FINDINGS: Bones: Similar appearance of mildly displaced oblique fracture of the distal fibula with intra-artic ular extension to the distal tibiofibular syndesmosis. No significant callus formation. Stable alignm ent on weightbearing view. No suspicious bony lesions. Soft tissues: No tibiotalar joint effusion. Achilles tendon appears normal. IMPRESSION: Similar appearance of mildly displaced distal fibular fracture with no significant interval osseous h ealing. Stable alignment. Reviewed by: Romain Thompson MD on 11/21/2023 6:20 PM [facility] Approved by: Romain Thompson MD on 11/21/2023 6:20 PM [facility] Station ID: [id number]
== END 2023-11-21 08:56 | disposition home or self-care (01) ==
LOC: DI 08:55
PROVIDERS: ATTEND Orthopaedic Surgery
DX: S82.432D Displaced oblique fracture of shaft of left fibula, subsequent encounter for closed fracture with routine healing (principal)